=== PATIENT | male | born 2000 ===

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

== ENCOUNTER 2021-05-30 21:42 | Emergency (ER) | payer MEDICAID | END 2021-05-30 22:52 | disposition left against medical advice (07) | LOC: ERS 21:42 | DX: Z53.21 Procedure and treatment not carried out due to patient leaving prior to being seen by health care provider (principal) ==